=== PATIENT | male | born 1985 | race African-American/Black ===

== ENCOUNTER 2022-08-15 14:53 | Emergency (ER) | payer OTHER ==
[~2022-08-15] VITALS: Ht 193 cm; Wt 100.0 kg
[2022-08-15] MEDS ORDERED: DICL100G31 TP (23:45)
[2022-08-15] MEDS ORDERED: LIDOCAINE 5% PATCH TOP SCH (23:45)
[2022-08-15] MEDS ORDERED: NAPR500T7 MT (23:45)
[2022-08-15] MEDS ORDERED: LIDO700A15 TP (23:45)
[2022-08-15] MEDS ORDERED: IBUPROFEN 600MG TABLET PO ONE (23:45)
[2022-08-15 23:51] VITALS: BP 131/78
== END 2022-08-16 00:19 | disposition home or self-care (01) ==
LOC: ER 14:53
DX: S13.4XXA Sprain of ligaments of cervical spine, initial encounter (principal); V49.49XA Driver injured in collision with other motor vehicles in traffic accident, initial encounter; Y93.89 Activity, other specified; Y92.89 Other specified places as the place of occurrence of the external cause; Y99.8 Other external cause status; I10 Essential (primary) hypertension
CPT/HCPCS: 99283